=== PATIENT | female | born 2000 ===

== ENCOUNTER 2022-04-03 12:31 | Emergency (ER) | payer OTHER, SELFPAY ==
--- OUTSIDE RECORDS SUMMARY | 2022-04-03 13:53 | XMS_ITS | Continuity of Care Document ---
:2000 Author Organization [facility] Address [address] [place] [address]- Care Team Providers Name Role Phone Not on Staff, PCP Primary Care Physician Unavailable [facility]counter [facility] Date(s): 11/28/19 - 01/09/[address] [address]- [facility] Attending Physician: Not on Staff, Attending MD Allergies, Adverse Reactions, Alerts Substance Reaction Severity Status NKA Active Immunizations Given and Recorded Vaccine Date Status Refusal Reason Human Papillomavirus Vaccine 03/16/15 Given Human Papillomavirus Vaccine 01/01/14 Given Human Papillomavirus Vaccine1 09/27/12 Given Hepatitis A Pediatric Vaccine 03/16/15 Given Hepatitis A Pediatric Vaccine 01/01/14 Given influenza virus vaccine, inactivated 03/16/15 Given Varicella Virus Vaccine 01/01/14 Given Varicella Virus Vaccine 06/28/01 Given Meningococcal Polysaccharide Vaccine2 09/27/12 Given tetanus/diphtheria/pertussis, acel(Tdap)3 09/27/12 Given Poliovirus Vaccine, Inactivated 07/28/04 Given Poliovirus Vaccine, Inactivated 09/25/01 Given Poliovirus Vaccine, Inactivated 00 Given Poliovirus Vaccine, Inactivated 00 Given diphtheria/tetanus/pertussis, acel(DTaP) 07/28/04 Given diphtheria/tetanus/pertussis, acel(DTaP) 09/25/01 Given diphtheria/tetanus/pertussis, acel(DTaP) 01/01/01 Given diphtheria/tetanus/pertussis, acel(DTaP) 00 Given diphtheria/tetanus/pertussis, acel(DTaP) 00 Given Measles/Mumps/Rubella Virus Vaccine 12/02/03 Given Measles/Mumps/Rubella Virus Vaccine 06/28/01 Given Haemophilus B conjugate (HbOC) vaccine 06/28/01 Given Haemophilus B conjugate (HbOC) vaccine 01/01/01 Given Haemophilus B conjugate (HbOC) vaccine 00 Given Haemophilus B conjugate (HbOC) vaccine 00 Given pneumococcal 13-valent vaccine 01/01/01 Given hepatitis B pediatric vaccine 01/01/01 Given hepatitis B pediatric vaccine 00 Given pneumococcal 7-valent vaccine 00 Given pneumococcal 7-valent vaccine 00 Given hepatitis B adult vaccine 00 Given 1Admin Note: VIS given-07/12/20112Admin Note: vis Given-03/03/20113Admin Note: VIS given-06/13/2011 Medications Mifeprex 200 mg oral tablet See Instructions, 1 tab po given in clinic, # 1 tablet, 0 Refills, Soft Stop, 10/21/19 11:37:00 EDT Start Date: 10/21/19 Status: OrderedmiSOPROStol 200 mcg oral tablet 4 tablet = 800 mcg, By Mouth, Once, Buccal- place all four tablets in cheek and allow to dissolve, #4 tablet, 0 Refills, Soft Stop, 10/21/19 11:45:00 EDT, Tablet, [facility]/pharmacy #[id number], 157, cm, 10/20/2010:17:00 EDT, Height, 79.4, kg, 10/06/19 13:53:00... Start Date: 10/21/19 Status: OrderedZofran 4 mg oral tablet 1 tablet = 4 mg, By Mouth, Every 8 hours, # 12 tablet, 0 Refills, Maintenance, 10/21/19 11:42:00 EDT, Tablet, [facility]/pharmacy #[id number], 157, cm, 10/21/19 11:17:00 EDT, Height, 79.4, kg, 10/06/19 13:53:00 EDT, Dry Weight Start Date: 10/21/19 Status: Ordered Problem List Condition Effective Dates Status Health Status Informant Overweight peds (BMI 85-94.9 Active percentile)(Confirmed) Migraine(Confirmed) Active Social History Social History Type Response Smoking Status Never (less than 100 in life time) entered on: 10/06/19 Sex Female
--- OUTSIDE RECORDS SUMMARY | 2022-04-03 13:53 | XMS_ITS | Continuity of Care Document ---
:2000 Author Organization [facility] Address [address] [place] [address]- Care Team Providers Name Role Phone Tip CARVER, Shelby Primary Care Physician Encounter [facility] Date(s): 11/26/20 - 12/31/[address] [address]- Attending Physician: Not on Staff, Attending MD Allergies, Adverse Reactions, Alerts Substance Reaction Severity Status NKA Active Immunizations Given and Recorded Vaccine Date Status Refusal Reason tetanus/diphtheria/pertussis, acel(Tdap) 07/26/20 Given tetanus/diphtheria/pertussis, acel(Tdap)1 09/27/12 Given influenza virus vaccine, inactivated 03/16/15 Given Hepatitis A Pediatric Vaccine 03/16/15 Given Hepatitis A Pediatric Vaccine 01/01/14 Given Human Papillomavirus Vaccine 03/16/15 Given Human Papillomavirus Vaccine 01/01/14 Given Human Papillomavirus Vaccine2 09/27/12 Given Varicella Virus Vaccine 01/01/14 Given Varicella Virus Vaccine 06/28/01 Given Meningococcal Polysaccharide Vaccine3 09/27/12 Given Poliovirus Vaccine, Inactivated 07/28/04 Given [...] adult vaccine 00 Given 1Admin Note: VIS given-06/13/20112Admin Note: VIS given-07/12/20113Admin Note: vis Given-03/03/2011 Medications acetaminophen 325 mg oral tablet 650 mg, By Mouth, Every 4 hours, PRN, (1-3), may give 325mg per patient preference and re-dose with 325mg within 4 hours, if needed. Patient should only receive a total of 650mg of Acetaminophen every 4 hours., # 50 tablet, Refills 0, Tot. Refills 0... Start Date: 10/16/20 Status: Ordereddocusate sodium 100 mg oral capsule 1 capsule = 100 mg, By Mouth, 2 times a day, PRN Constipation, # 100 capsule, 0 Refills, Maintenance, 10/16/20 6:20:00 EDT, Capsule, [id number], Partial fill upon patient request if the prescription is for a schedule II opioid drug., 157, cm,... Start Date: 10/16/20 Status: Ordereddocusate sodium 100 mg oral tablet 1 tablet = 100 mg, By Mouth, 2 times a day, PRN for constipation, # 60 tablet, 0 Refills, Maintenance, 08/10/20 16:16:00 EDT, Tablet, [facility], Partial fill upon patient request if the prescription is for a schedule II opioid drug., 157, cm,... Start Date: 08/10/20 Status: Orderedferrous sulfate 325 mg oral enteric coated tablet 325 mg, 1, tablet, By Mouth, Daily, # 90 tablet, Refills 0, Tot. Refills 0, Maintenance, 08/10/20 16:16:00 EDT, Route to Pharmacy Electronically, [facility]/pharmacy #1972, Partial fill upon patient request if the prescription is for a schedule II opioid danya... Start Date: 08/10/20 Status: Orderedibuprofen 800 mg oral tablet 800 mg, 1, tablet, By Mouth, Every 8 hours, PRN, (4-6), may give 400mg per patient preference and re-dose with 400mg within 8 hours if needed. Patient should only receive a total of 800mg of Ibuprofen every 8 hours., # 50 tablet, Refills 0, Tot. Ref... Start Date: 10/16/20 Status: OrderedMiraLax oral powder for reconstitution = 17 Gm, By Mouth, Daily, dissolve in water before taking, # 255 Gm, 0 Refills, Maintenance, 09/17/20 15:41:00 EDT, REC Powder, [facility], Partial fill upon patient request if the prescriptionis for a schedule II opioid drug., 17 Gm By Mouth... Start Date: 09/17/20 Status: OrderedPrenatal Multivitamins with Folic Acid 1 mg oral tablet 1 tablet, By Mouth, Daily, # 90 tablet, 3 Refills, Maintenance, 10/16/20 6:20:00 EDT, Tablet, [facility], 1 tablet By Mouth Daily, 157, cm, 10/15/20 18:05:00 EDT, Height, 89.4, kg, 10/14/20 5:49:00 EDT, Dry Weight Start Date: 10/16/20 Status: Orderedsenna - oral tablet 2 tablet, By Mouth, Daily at bedtime, PRN for constipation, # 40 tablet, 0 Refills, Maintenance, 10/01/20 11:45:00 EDT, Tablet, [facility], Partial fill upon patient request if the prescriptionis for a schedule II opioid drug., 157, cm, 10/01... Start Date: 10/01/20 Status: OrderedTums 500 mg oral tablet, chewable 500 mg, 1, tablet, Chew, 2 times a day, PRN, # 60 tablet, Refills 3, Tot. Refills 3, Maintenance, asneeded for dyspepsia, 08/27/20 9:05:00 EDT, Route to Pharmacy Electronically, [facility], Partial fill upon patient request if the prescriptio... 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
--- OUTSIDE RECORDS SUMMARY | 2022-04-03 13:53 | XMS_ITS | Continuity of Care Document ---
:2000 Author Organization [facility] Address [address] [place] [address]- Care Team Providers Name Role Phone Not on Staff, PCP Primary Care Physician Unavailable [facility]counter [facility] Date[facility]s): 05/19/21 - 06/25/[address] [address] Attending Physician: Not on Staff, Attending MD Allergies, Adverse Reactions, Alerts No Known Allergies Immunizations Given and Recorded Vaccine Date Status [...] 08/10/20 16:16:00 EDT, Route to Pharmacy Electronically, [facility]/pharmacy #[id number], Partial fill upon patient request [...] (Confirmed)2 05/18/20 Active 1Problem added by Discern [id number] added by Discern Expert @MISC:9 Social History Social History Type Response Smoking Status Never (less than 100 in life time) entered on: 10/06/19 Sex
--- OUTSIDE RECORDS SUMMARY | 2022-04-03 13:53 | XMS_ITS | Continuity of Care Document ---
:2000 Author Organization [facility] Address [address] [place] [address]- Care Team Providers Name Role Phone Tip CARVER, Shelby Primary Care Physician Encounter [facility] Date(s): 08/27/20 - 10/24/[address] [address]- Attending Physician: Not on Staff, Attending MD [...] 08/10/20 16:16:00 EDT, Route to Pharmacy Electronically, [facility]/pharmacy #[id number], Partial fill upon patient request if [...] (Confirmed)2 05/18/20 Active 1Problem added by Discern [id number] added by Discern Expert @[facility] [place]:9 Social History Social History Type Response Smoking Status Never (less than 100 in life time) entered on: 10/06/19 Sex Female
--- OUTSIDE RECORDS SUMMARY | 2022-04-03 13:53 | XMS_ITS | Continuity of Care Document ---
:2000 Author Organization [facility] Address [address] [place] [address]- Care Team Providers Name Role Phone Not on Staff, PCP Primary Care Physician Unavailable Encounter [facility] Date(s): 05/26/21 - 07/14/[address] [address]- Attending Physician: Not on Staff, Attending MD [...] 08/10/20 16:16:00 EDT, Route to [facility], [id number], [...] (Confirmed)2 05/18/20 Active 1Problem added by Discern [id number] added by Discern Expert @[facility]:9 Social History Social History Type Response Smoking Status Never (less than 100 in life time) entered on: 10/06/19 Sex
--- OUTSIDE RECORDS SUMMARY | 2022-04-03 13:53 | XMS_ITS | Continuity of Care Document ---
:2000 Author Organization [facility] Address [address] [place] [address]- Care Team Providers Name Role Phone Shelby Whelan MD Primary Care Physician Encounter [facility] [place] [place] Date(s): 10/13/20 - 10/20/[address] [address] Attending Physician: Aurora Walker MD Allergies, Adverse Reactions, Alerts Substance Reaction [...] (Confirmed)2 05/18/20 Active 1Problem added by Discern [id number] added by Discern Expert @[facility]IS:9 Vital Signs Most recent to oldest [Reference Range]: 1 Oxygen Saturation [94-100 %] 98 % (10/13/20 7:36 PM) Pulse Rate [55-90 bpm] 87 bpm (10/13/20 7:36 PM) Blood Pressure [90-138/55-84 mm Hg] 133/86 mm Hg (10/13/20 7:36 PM) Respiratory Rate [16-30 br/min] 18 br/min (10/13/20 7:36 PM) Temperature [96.8-100.4 DegF] 97.6 DegF (10/13/20 7:29 PM) Mode of Delivery (Oxygen) Room air (10/13/20 7:36 PM) Blood pressure sites Arm, left (10/13/20 7:36 PM) Temperature Route Oral (10/13/20 7:29 PM) Social History Social History Type Response Smoking Status Never (less than 100 in life time) entered on: 10/06/19 Sex Female
--- OUTSIDE RECORDS SUMMARY | 2022-04-03 13:53 | XMS_ITS | Continuity of Care Document ---
:2000 Author Organization [facility] Address [address] [place] [address]- Care Team Providers Name Role Phone Tip CARVER, Shelby Primary Care Physician [facility]counter [facility] Date(s): 09/17/20 - 10/17/[address] [address] Allergies, Adverse Reactions, Alerts Substance Reaction Severity [...] 08/10/20 16:16:00 EDT, Route to Pharmacy Electronically, [facility]/pharmacy #[id number], Partial fill upon patient request [...] Refills, Maintenance, 09/17/20 15:41:00 EDT, REC Powder, [facility]/pharmacy #1972, Partial fill upon patient request if the prescriptionis for a schedule II opioid drug., 17 Gm By Mouth... Start Date: 09/17/20 Status: OrderedPrenatal Multivitamins with Folic Acid 1 mg oral tablet 1 tablet, By Mouth, Daily, # 90 tablet, 3 Refills, Maintenance, 10/16/20 6:20:00 EDT, Tablet, [facility]/pharmacy #1972, 1 tablet By Mouth Daily, 157, [...] (Confirmed)2 05/18/20 Active 1Problem added by Discern [id number] added by Discern Expert @[facility]:9 Social History Social History Type Response Smoking Status Never (less than 100 in life time) entered on: 10/06/19 Sex Female
--- OUTSIDE RECORDS SUMMARY | 2022-04-03 13:53 | XMS_ITS | Continuity of Care Document ---
:2000 Author Organization [facility] Address [address] [place] [address]- Care Team Providers Name Role Phone Shelby Whelan MD Primary Care Physician Encounter [facility] Date(s): 05/15/20 - 05/15/[address] [address] Discharge Disposition: A-D/C Home Attending Physician: Kareem Lazcano MD Admitting Physician: Kareem Lazcano MD Referring Physician: Kareem Lazcano MD Allergies, Adverse Reactions, Alerts Substance Reaction Severity Status NKA Active Immunizations Given and Recorded Vaccine Date Status Refusal Reason influenza virus vaccine, inactivated 03/16/15 Given Hepatitis A Pediatric Vaccine 03/16/15 Given Hepatitis A Pediatric Vaccine 01/01/14 Given Human Papillomavirus Vaccine 03/16/15 Given Human Papillomavirus Vaccine 01/01/14 Given Human Papillomavirus Vaccine1 09/27/12 Given Varicella Virus Vaccine 01/01/14 Given [...] Note: vis Given-03/03/20113Admin Note: VIS given-06/13/2011 Medications doxylamine 25 mg oral tablet 0.5 tablet = 12.5 mg, By Mouth, 3 times a day, PRN Nausea & Vomiting, Take 1/2 a tab three timesdaily with one tab of Vit B6 - if this medication causes daytime drowiness may take one whole tab atbedtime, # 45 tablet, 1 Refills, Acute 02/23/21 16:09... Start Date: 02/23/20 Stop Date: 02/23/21 Status: OrderedMetroGel 1% topical gel 1 application, Topically, Daily, # 45 Gm, 0 Refills, Maintenance, 05/15/20 2:50:00 EST, Gel, [facility]/pharmacy #[id number], Partial fill upon patient request if the prescription is for a schedule II opioid drug.,1 application Topically Daily,x7 days, 157, cm, 1... Start Date: 05/15/20 Stop Date: 05/22/20 Status: OrderedMifeprex 200 mg oral tablet See Instructions, 1 tab po given in clinic, # 1 tablet, 0 Refills, Soft Stop, 10/21/19 11:37:00 EDT Start Date: 10/21/19 Status: OrderedmiSOPROStol 200 mcg oral tablet 4 tablet = 800 mcg, By Mouth, Once, Buccal- place all four tablets in cheek and allow to dissolve, #4 tablet, 0 Refills, Soft Stop, 10/21/19 11:45:00 EDT, Tablet, [id number], 157, cm, 10/20/2010:17:00 EDT, Height, 79.4, kg, 10/06/19 13:53:00... Start Date: 10/21/19 Status: OrderedPrenatal Multivitamins with Folic Acid 1 mg oral tablet 1 tablet, By Mouth, Daily, # 90 tablet, 3 Refills, Maintenance, 02/23/20 16:06:00 EDT, Tablet, [facility] #[id number], 1 tablet By Mouth Daily, 157, cm, 10/21/19 11:17:00 EDT, Height, 79.4, kg, 10/06/19 13:53:00 EDT, Dry Weight Start Date: 02/23/20 Status: Orderedpyridoxine 25 mg oral tablet 1 tablet = 25 mg, By Mouth, 3 times a day, PRN Nausea & Vomiting, Take one tab with 1/2 a tab ofdoxylamine three times a day, # 90 tablet, 0 Refills, Acute 02/23/21 16:09:00 EDT, 02/23/20 16:07:00EDT, [facility] #[id number], 157, cm, 10/21/19 1... Start Date: 02/23/20 Stop Date: 02/23/21 Status: OrderedZofran 4 mg oral tablet 1 tablet = 4 mg, By Mouth, Every 8 hours, # 12 tablet, 0 Refills, Maintenance, 10/21/19 11:42:00 EDT, Tablet, [facility]/pharmacy #[id number], 157, cm, 10/21/19 11:17:00 EDT, Height, 79.4, kg, 10/06/19 13:53:00 EDT, Dry Weight Start Date: 10/21/19 Status: Ordered Problem List Condition Effective Dates Status Health Status Informant Overweight peds (BMI 85-94.9 Active percentile)(Confirmed) Migraine(Confirmed) Active Vital Signs Most recent to oldest [Reference Range]: 1 Weight 71.6 kg (05/15/20 1:32 AM) Oxygen Saturation [94-100 %] 99 % (05/15/20 1:30 AM) Pulse Rate [55-90 bpm] 106 bpm *H* (05/15/20 1:30 AM) Blood Pressure [90-138/55-84 mm Hg] 126/73 mm Hg (05/15/20 1:30 AM) Respiratory Rate [16-30 br/min] 16 br/min (05/15/20 1:30 AM) Temperature [96.8-100.4 DegF] 98.6 DegF (05/15/20 1:30 AM) Mode of Delivery (Oxygen) Room air (05/15/20 1:30 AM) Blood pressure sites Arm, right (05/15/20 1:30 AM) Temperature Route Oral (05/15/20 1:30 AM) Dry Weight 71.6 kg (05/15/20 1:32 AM) Weight Obtained Via Standing scale (05/15/20 1:32 AM) Social History Social History Type Response Smoking Status Never (less than 100 in life time) entered on: 10/06/19 Sex Female
--- OUTSIDE RECORDS SUMMARY | 2022-04-03 13:53 | XMS_ITS | Continuity of Care Document ---
:2000 Author Organization [facility] Address [address] [place] [address]- Care Team Providers Name Role Phone Shelby Whelan MD Primary Care Physician Encounter [facility] [place] Date(s): 05/20/20 - 06/19/[address] [address] Attending Physician: Antoinette Hess CNM Admitting Physician: Antoinette Hess CNM Referring Physician: Antoinette Hess CNM Allergies, Adverse Reactions, Alerts Substance Reaction Severity [...] Note: vis Given-03/03/20113Admin Note: VIS given-06/13/2011 Medications Diflucan 150 mg oral tablet 1 tablet = 150 mg, By Mouth, Once, # 1 tablet, 0 Refills, Soft Stop, 05/24/20 13:53:00 EST, Tablet, [facility]/pharmacy #[id number], Partial fill upon patient request if the prescription is for a schedule II opioiddrug., 157, cm, 05/06/20 11:21:00 EST, Height, 71... Start Date: 05/24/20 Status: Ordereddoxylamine 25 mg oral tablet 0.5 tablet = 12.5 mg, By Mouth, 3 times a day, PRN Nausea & Vomiting, Take 1/2 a tab three timesdaily with one tab of Vit B6 - if this medication causes daytime drowiness may take one whole tab atbedtime, # 45 tablet, 1 Refills, Acute 02/23/21 16:09... Start Date: 02/23/20 Stop Date: 02/23/21 Status: OrderedFlagyl 500 mg oral tablet 1 tablet = 500 mg, By Mouth, Every 12 hours, # 14 tablet, 0 Refills, Maintenance, 05/18/20 4:18:00 EST, Tablet, [facility]/pharmacy #[id number], Partial fill upon patient request if the prescription is for a schedule II opioid drug., 157, cm, 05/06/20 11:21:00 EST... Start Date: 05/18/20 Status: Orderedlidocaine 5% topical ointment 1 application, Topically, 3 times a day, # 50 Gm, 0 Refills, Maintenance, 05/18/20 4:22:00 EST, Ointment, [facility]/pharmacy #[id number], Partial fill upon patient request if the prescription is for a schedule II opioid drug., 1 application Topically 3 times a da... Start Date: 05/18/20 Status: OrderedMetroGel 1% topical gel 1 application, Topically, Daily, # 45 Gm, 0 Refills, Maintenance, 05/15/20 2:50:00 EST, Gel, [facility]/pharmacy #[id number], Partial fill upon patient request if the prescription is for a schedule II opioid drug.,1 application Topically Daily,x7 days, 157, cm, 1... Start Date: 05/15/20 Stop Date: 05/22/20 Status: OrderedPrenatal Multivitamins with Folic Acid 1 mg oral tablet 1 tablet, By Mouth, Daily, # 90 tablet, 3 Refills, Maintenance, 02/23/20 16:06:00 EDT, Tablet, [facility] #[id number], 1 tablet By Mouth Daily, 157, cm, [...] Refills, Acute 02/23/21 16:09:00 EDT, 02/23/20 16:07:00EDT, [facility] #[id number], 157, cm, 10/21/19 1... Start Date: 02/23/20 Stop Date: 02/23/21 Status: Orderedvalacyclovir 1 gm oral tablet 1 tablet = 1 Gm, By Mouth, 2 times a day, # 20 tablet, 0 Refills, Maintenance, 05/18/20 4:17:00 EST,Tablet, [facility]/pharmacy #[id number], Partial fill upon patient request if the prescription is for a schedule II opioid drug., 157, cm, 05/06/20 11:21:00 EST, H... 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
--- OUTSIDE RECORDS SUMMARY | 2022-04-03 13:53 | XMS_ITS | Continuity of Care Document ---
:2000 Author Organization [facility] Address [address] [place] [address]- Care Team Providers Name Role Phone Shelby Whelan MD Primary Care Physician Encounter [facility] [place] Date(s): 02/06/20 - 03/24/[address] [address]- [facility] Attending Physician: Not on Staff, Attending MD [...] Start Date: 02/23/20 Stop Date: 02/23/21 Status: OrderedMifeprex 200 mg oral tablet See Instructions, 1 tab po given in clinic, # 1 tablet, 0 Refills, Soft Stop, 10/21/19 11:37:00 EDT Start Date: 10/21/19 Status: OrderedmiSOPROStol 200 mcg oral tablet 4 tablet = 800 mcg, By Mouth, Once, Buccal- place all four tablets in cheek and allow to dissolve, #4 tablet, 0 Refills, Soft Stop, 10/21/19 11:45:00 EDT, Tablet, [facility]/pharmacy #[id number], 157, cm, 10/20/2010:17:00 EDT, Height, 79.4, kg, 10/06/19 13:53:00... Start Date: 10/21/19 Status: OrderedPrenatal Multivitamins with Folic Acid 1 mg oral tablet 1 tablet, By Mouth, Daily, # 90 tablet, 3 Refills, Maintenance, 02/23/20 16:06:00 EDT, Tablet, [facility] #[id number], 1 tablet By Mouth Daily, 157, cm, [...] Refills, Acute 02/23/21 16:09:00 EDT, 02/23/20 16:07:00EDT, [id number], 157, cm, 10/21/19 1... Start Date: 02/23/20 Stop Date: 02/23/21 Status: OrderedZofran 4 mg oral tablet 1 tablet = 4 mg, By Mouth, Every 8 hours, # 12 tablet, 0 Refills, Maintenance, 10/21/19 11:42:00 EDT, Tablet, [facility]/pharmacy #[id number], 157, cm, 10/21/19 11:17:00 EDT, Height, 79.4, kg, 10/06/19 13:53:00 EDT, Dry Weight Start Date: 10/21/19 Status: Ordered Problem List Condition Effective Dates Status Health Status Informant Overweight peds (BMI 85-94.9 Active percentile)(Confirmed) Migraine(Confirmed) Active Social History Social History Type Response Smoking Status Never (less than 100 in life time) entered on: 10/06/19 Sex Female
--- OUTSIDE RECORDS SUMMARY | 2022-04-03 13:53 | XMS_ITS | Continuity of Care Document ---
:2000 Author Organization [facility] Address [address] [place] [address]- Care Team Providers Name Role Phone Tip CARVER, Shelby Primary Care Physician Encounter [facility] Date(s): 01/03/21 - 02/02/[address] [address]- Allergies, Adverse Reactions, Alerts Substance Reaction Severity [...] (Confirmed)2 05/18/20 Active 1Problem added by Discern [id number] added by Discern Expert @MIS:9 Social History Social History Type Response Smoking Status Never (less than 100 in life time) entered on: 10/06/19 Sex
--- OUTSIDE RECORDS SUMMARY | 2022-04-03 13:53 | XMS_ITS | Continuity of Care Document ---
:2000 Author Organization [facility] Address [address] [place] [id number]- Care Team Providers Name Role Phone Shelby Whelan MD Primary Care Physician [place] [facility] [place]13[place] - 10/13/[address] [id number] Discharge Disposition: A-D/C Home Attending Physician: Kareem [...] Note: VIS given-07/12/20113Admin Note: vis Given-03/03/2011 Medications docusate sodium 100 mg oral tablet 1 tablet [...] 16:16:00 EDT, Route to Pharmacy Electronically, [facility]/pharmacy #[id number], Partial fill upon patient request if the prescription is for a schedule II opioid danya... Start Date: 08/10/20 Status: OrderedMiraLax oral powder for reconstitution = [...] 3 Refills, Maintenance, 02/23/20 16:06:00 EDT, Tablet, [facility] #[id number], 1 tablet By Mouth Daily, 157, cm, 10/21/19 11:17:00 EDT, Height, 79.4, kg, 10/06/19 13:53:00 EDT, Dry Weight Start Date: 02/23/20 Status: Orderedsenna - oral tablet 2 tablet, [...] if the prescriptio... Start Date: 08/27/20 Status: Orderedvalacyclovir 1 gm oral tablet 1 tablet = 1 Gm, By Mouth, Daily, # 30 tablet, 3 Refills, Maintenance, 07/26/20 15:14:00 EST, Tablet, [facility] #[id number], Partial fill upon patient request if the prescription is for a schedule II opioid drug., 157, cm, 07/26/20 14:42:00 EST, Height,... 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 , antepartum(Confirmed) Migraine(Confirmed) Active Anxiety and depression(Confirmed) Active Teenage (Confirmed)3 05/18/20 Active 1Problem added by Discern [id number] added by Discern [id number] added by Discern Expert @MISC:9 Vital Signs Most recent to oldest [Reference Range]: 1 2 Height 158 cm (10/13/20 9:53 AM) Weight 89.4 kg (10/13/20 9:41 AM) Pulse Rate [55-90 bpm] 90 bpm (10/13/20 9:53 AM) Blood Pressure [90-138/55-84 mm Hg] 127/78 mm Hg (10/13/20 9:53 AM) Respiratory Rate [16-30 br/min] 18 br/min (10/13/20 9:53 AM) Temperature [96.8-100.4 DegF] 98.3 DegF (10/13/20 9:41 AM) Blood pressure sites Arm, right (10/13/20 9:53 AM) Temperature Route Oral Oral (10/13/20 9:53 AM) (10/13/20 9:41 AM) Dry Weight 89.4 kg (10/13/20 9:41 AM) Weight Obtained Via Standing scale (10/13/20 9:41 AM) Dry Weight Obtained Via Standing scale (10/13/20 9:41 AM) Social History Social History Type Response Smoking Status Never (less than 100 in life time) entered on: 10/06/19 Sex Female
--- OUTSIDE RECORDS SUMMARY | 2022-04-03 13:53 | XMS_ITS | Continuity of Care Document ---
:2000 Author Organization [facility] Address [address] [place] [id number]- Care Team Providers Name Role Phone Not on Staff, PCP Primary Care Physician Unavailable Encounter [facility] Date(s): 10/06/19 - 11/28/[address] [address]- [facility] Attending Physician: Not on Staff, Attending MD Referring Physician: Jeannette Taylor MD Allergies, Adverse Reactions, Alerts Substance Reaction [...] Refills, Soft Stop, 10/21/19 11:45:00 EDT, Tablet, [facility]/pharmacy #[id number], 157, cm, 10/20/2010:17:00 EDT, Height, 79.4, kg, 10/06/19 13:53:00... Start Date: 10/21/19 Status: OrderedZofran 4 mg oral tablet 1 tablet = 4 mg, By Mouth, Every 8 hours, # 12 tablet, 0 Refills, Maintenance, 10/21/19 11:42:00 EDT, Tablet, [facility]/pharmacy #[id number], 157, cm, 10/21/19 11:17:00 EDT, [...]
--- OUTSIDE RECORDS SUMMARY | 2022-04-03 13:53 | XMS_ITS | Continuity of Care Document ---
:2000 Author Organization [facility] Address [address] [place] [id number]- Care Team Providers Name Role Phone Shelby Whelan MD Primary Care Physician Encounter [facility] [place] Date(s): 05/06/20 - 07/03/[address] [address] Attending Physician: Not on Staff, Attending MD [...] Refills, Soft Stop, 05/24/20 13:53:00 EST, Tablet, [facility]/pharmacy #[id number], Partial fill upon patient [...] 0 Refills, Maintenance, 05/18/20 4:18:00 EST, Tablet, [facility]/pharmacy #[id number], Partial fill upon patient request if the prescription is for a schedule II opioid drug., 157, cm, 05/06/20 11:21:00 EST... Start Date: 05/18/20 Status: Orderedlidocaine 5% topical ointment 1 application, Topically, 3 times a day, # 50 Gm, 0 Refills, Maintenance, 05/18/20 4:22:00 EST, Ointment, [facility]/pharmacy #[id number], Partial fill upon patient request if the prescription is for a schedule II opioid drug., 1 application Topically 3 times a da... Start Date: 05/18/20 Status: OrderedMetroGel 1% topical gel 1 application, Topically, Daily, # 45 Gm, 0 Refills, Maintenance, 05/15/20 2:50:00 EST, Gel, [facility]/pharmacy #[id number], Partial fill upon patient request if the prescription is for a schedule II opioid drug.,1 application Topically Daily,x7 days, 157, cm, 1... Start Date: 05/15/20 Stop Date: 05/22/20 Status: OrderedPrenatal Multivitamins with Folic Acid 1 mg oral tablet 1 tablet, By Mouth, Daily, # 90 tablet, 3 Refills, Maintenance, 02/23/20 16:06:00 EDT, Tablet, [facility] #[id number], 1 tablet By Mouth Daily, 157, cm, [...] Refills, Acute 02/23/21 16:09:00 EDT, 02/23/20 16:07:00EDT, [facility] #[id number], 157, cm, 10/21/19 1... Start Date: 02/23/20 Stop Date: 02/23/21 Status: Orderedvalacyclovir 1 gm oral tablet 1 tablet = 1 Gm, By Mouth, 2 times a day, # 20 tablet, 0 Refills, Maintenance, 05/18/20 4:17:00 EST,Tablet, [facility]/pharmacy #[id number], Partial fill upon patient request if [...]
--- OUTSIDE RECORDS SUMMARY | 2022-04-03 13:53 | XMS_ITS | Continuity of Care Document ---
:2000 Author Organization [facility] Address [address] [place] [id number]- Care Team Providers Name Role Phone Shelby Whelan MD Primary Care Physician [place] [facility] [place](s): 08/24/20 - 09/23/[address] [address] Allergies, Adverse Reactions, Alerts Substance Reaction Severity [...] 0 Refills, Maintenance, 08/10/20 16:16:00 EDT, Tablet, [facility]/pharmacy #[id number], Partial fill upon patient request if [...] 3 Refills, Maintenance, 02/23/20 16:06:00 EDT, Tablet, [facility] #[id number], 1 tablet By Mouth Daily, 157, cm, 10/21/19 11:17:00 EDT, Height, 79.4, kg, 10/06/19 13:53:00 EDT, Dry Weight Start Date: 02/23/20 Status: OrderedTums 500 mg oral tablet, chewable [...] (Confirmed)3 05/18/20 Active 1Problem added by Discern [id number] added by Discern [id number] added by Discern Expert @[facility]:9 Social History Social History Type Response Smoking Status Never (less than 100 in life time) entered on: 10/06/19 Sex Female
--- OUTSIDE RECORDS SUMMARY | 2022-04-03 13:53 | XMS_ITS | Continuity of Care Document ---
:2000 Author Organization [facility] Address [address] [place] [id number]- Care Team Providers Name Role Phone Shelby Whelan MD Primary Care Physician [place] [facility] [place](s[place] 05/15/20 - 05/15/[address] [address]- Discharge Disposition: Transferred to an intermediate care faci Attending Physician: Not on Staff, Attending MD Admitting Physician: Not on Staff, Admitting MD Referring Physician: Not on Staff, Referring MD Allergies, Adverse Reactions, Alerts Substance Reaction [...] 0 Refills, Maintenance, 05/15/20 2:50:00 EST, Gel, [id number], Partial fill upon patient request if [...] 3 Refills, Maintenance, 02/23/20 16:06:00 EDT, Tablet, [facility] #[id number], 1 tablet By Mouth Daily, 157, cm, [...] Refills, Acute 02/23/21 16:09:00 EDT, 02/23/20 16:07:00EDT, [id number], 157, cm, 10/21/19 1... Start Date: 02/23/20 Stop Date: 02/23/21 Status: OrderedZofran 4 mg oral tablet 1 tablet = 4 mg, By Mouth, Every 8 hours, # 12 tablet, 0 Refills, Maintenance, 10/21/19 11:42:00 EDT, Tablet, [facility]/pharmacy #[id number], 157, cm, 10/21/19 11:17:00 EDT, Height, 79.4, kg, 10/06/19 13:53:00 EDT, Dry Weight Start Date: 10/21/19 Status: Ordered Problem List Condition Effective Dates Status Health Status Informant Overweight peds (BMI 85-94.9 Active percentile)(Confirmed) Migraine(Confirmed) Active Vital Signs Most recent to oldest [Reference Range]: 1 2 Oxygen Saturation [94-100 %] 100 % 100 % (05/15/20 12:43 AM) (05/15/20 12:35 AM) Pulse Rate [55-90 bpm] 100 bpm 124 bpm *H* *H* (05/15/20 12:43 AM) (05/15/20 12:35 AM) Blood Pressure [90-138/55-84 mm Hg] 104/57 mm Hg (05/15/20 12:43 AM) Respiratory Rate [16-30 br/min] 20 br/min 20 br/mi n (05/15/20 12:43 AM) (05/15/20 12:35 AM) Temperature [96.8-100.4 DegF] 97.7 DegF (05/15/20 12:43 AM) Mode of Delivery (Oxygen) Room air Room air (05/15/20 12:43 AM) (05/15/20 12:35 AM) Temperature Route Oral (05/15/20 12:43 AM) Social History Social History Type Response Smoking Status Never (less than 100 in life time) entered on: 10/06/19 Sex Female
== END 2022-04-03 14:54 | disposition left against medical advice (07) ==
PROVIDERS: Emergency Provider Emergency Medicine
DX: R10.10 Upper abdominal pain, unspecified (principal)

== ENCOUNTER 2023-06-03 10:56 | Emergency (ER) | payer OTHER, SELFPAY ==
--- NOTE | ~2023-06-03 | US_ITS ---
EXAMINATION: US OBSTETRICAL ULTRASOUND CLINICAL INFORMATION: Beta-HCG positive. Sharp lower abdominal pain COMPARISON: None available. LMP: Unknown. TECHNIQUE: Ultrasound of the maternal pelvis is performed using transabdominal and transvaginal transducers. Transvaginal imaging is performed due to inadequate visualization transabdominally. M-mode Doppler is also performed. FINDINGS: There is a single intrauterine gestational sac with visible yolk sac, embryo/fetus, and cardiac activity. There is no significant subchorionic hemorrhage or hematoma. HR: 116 beats per minute. CRL (crown rump length): 0.59 cm (6 weeks, 3 days +/- 4 days). JOHN (estimated date of delivery): 01/24/2024 +/- 4 days. MATERNAL ADNEXA: The right maternal ovary measures 3.3 x 1.7 x 1.7 cm. There is a small periovarian exophytic cystic lesion with internal echoes measuring 2.0 x 1.3 x 1.7 cm The left maternal ovary measures 4.1 x 3.4 x 3.4 cm. No maternal pelvic ascites. US/US OB <= 14 weeks fetus IMPRESSION: 1. Single intrauterine gestation with ultrasound gestational age of 6 weeks 3 days +/- 4 days. 2. Estimated date of delivery is 01/24/2024 +/- 4 days. 3. No maternal adnexal mass or pelvic ascites.
--- NOTE | 2023-06-03 11:24 | ED_ITS ---
HPI - General Chief complaint: Abdominal Pain Stated complaint: -lower abd pain Time Seen by Provider: 06/03/23 21:29 Source: patient Mode of arrival: ambulatory Limitations: no limitations History of Present Illness HPI Narrative: Patient A1 been having lower abdominal discomfort diagnosed with 1 week when she went to clinic for cough nausea vomiting COVID test was negative. Patient has been lifting heavy weights at work no vaginal discharge noticed discomfort in suprapubic area no urinary symptoms does have nausea and vomiting no fever or chills no urinary symptoms Related Data Previous Rx's Medication Instructions Recorded ondansetron 4 mg disintegrating 4 mg PO Q6-8H PRN nausea and 06/03/23 tablet vomiting #20 tabs Allergies Allergy/AdvReac Type Severity Reaction Status Date / Time No Known Allergies Allergy Verified 06/03/23 11:25 Review of Systems 2 Review of Systems: Yes all other systems are reviewed and are negative [facility] Social History Social History Advance Directives: No Advance Directives Information Provided: No Physical Exam 2 Vital Signs: Vital Signs: Last Vital Signs Temp 97.7 F 06/03/23 20:13 Pulse 75 06/03/23 21:45 Resp 16 06/03/23 20:13 BP 114/70 06/03/23 21:45 Pulse Ox 99 06/03/23 21:45 O2 Del Method Room Air 06/03/23 21:45 BMI result Body Mass Index 27.8 Appearance: Alert. Oriented X3. No acute distress. ENT: Pharynx normal. Oral Mucosa moist Neck: Normal inspection. Neck supple. CVS: Normal heart rate and rhythm. Pulses normal. Respiratory: No respiratory distress. Equal air entry bilateral, no wheezing/rales/rhonchi Abdomen: Soft and nontender. Bowel sounds are present, no mass palpable, no CVA tenderness Skin: Skin warm and dry. Normal skin color. Normal skin turgor. Extremities: No lower extremity edema. No calf tenderness Neuro: Oriented X 3. Course Course Course Narrative: This is an RME: Additional HPI, ROS, PE not included below will be deferred to primary provider. This is a [id number], (1 miscarriage) presenting to the emergency department with a complaint of lower abdominal pain x 5 days. She states that last Sunday she went to an urgent care as she was experiencing dizziness, slight fever, and nausea. At that time she tested negative for COVID, but tested positive for . She states that her last menstrual period was around Thanksgiving time, she is uncertain about the specific date. She states that over the last 5 days she has had lower abdominal cramping with intermittent sharp pains in her suprapubic region. Denies any vaginal bleeding or discharge. Plan: Labs, UA, ultrasound Medical Decision Making Medical Decision Making [facility] Narrative: Patient with IUP no significant tenderness noticed noticed to have 2+ bacteria in the urine patient denied any symptoms for also has squamous cells patient has ketones in the urine. Patient vomiting to 3 times a day advised anterior fluids follow-up with OBGYN give a prescription of Zofran Differential Diagnosis Differential Diagnoses: The differential diagnosis associated with the presentation includes IUP/ectopic cyst/UTI Lab Data [facility] Lab Attestation statement: I reviewed the patient's lab results. 06/03/23 11:32 06/03/23 11:32 Labs: Lab Results 06/03/23 06/03/23 06/03/23 Range/Units 11:32 11:35 21:58 WBC 7.6 (4.8-10.8) X10*3/uL RBC 4.74 (4.20-5.50) X10*6/uL Hgb 14.4 (12.0-16.0) g/dl Hct 40.9 (37.0-47.0) % MCV 86.3 (80.0-98.0) fL MCH 30.4 (27.0-33.0) pg MCHC 35.2 H (31.0-35.0) g/dl RDW 11.9 (11.0-16.0) % Plt Count 284 (160-400) X10*3/uL MPV 9.0 L (9.4-12.3) fL Immature Gran % (Auto) 0.3 (0.0-0.4) % Neut % (Auto) 71.3 (45-73) % Lymph % (Auto) 20.0 (20-40) % Ponce % (Auto) 7.2 (2-11) % Eos % (Auto) 0.8 (0-4) % Baso % (Auto) 0.4 (0-2) % Lymph # (Auto) 1.5 (1.2-4.9) X10*3/uL Ponce # (Auto) 0.5 (0.1-1.2) X10*3/uL Eos # (Auto) 0.1 (0.0-0.4) X10*3/uL Baso # (Auto) 0.0 (0.0-0.2) X10*3/uL Abs Immat Gran (auto) 0.02 (0.00-0.03) X10*3/uL Absolute Neuts (auto) 5.4 (2.0-8.3) x10*3/uL Absolute Nucleated RBC 0.000 (0.0-0.012) X10*3/uL Nucleated RBC % (auto) 0.0 (0.0-0.2) /100WBC Sodium 137 (135-145) mmol/L Potassium 3.8 (3.3-5.1) mmol/L Chloride 104 (96-108) mmol/L Carbon Dioxide 23 (22-29) mmol/L Anion Gap 14 (12-20) BUN 10 (9-16) mg/dL Creatinine 0.63 (0.5-1.4) mg/dL Estim Creat Clear Calc 127.4 Estimated GFR > 60 Random Glucose 89 (60-115) mg/dL Calcium 9.9 (8.4-10.2) mg/dL Magnesium 1.8 (1.6-2.6) mg/dL Total Bilirubin 0.8 (0.0-1.0) mg/dL Direct Bilirubin 0.3 (0.0-0.5) mg/dL AST 12 (5-31) U/L ALT 11 (0-31) U/L Alkaline Phosphatase 72 (39-117) U/L Total Protein 7.6 (6.5-8.0) g/dL Albumin 4.4 (3.5-5.0) g/dL Beta HCG, Quant 36146 mIU/mL Urine Color Dark Yellow Urine Appearance Cloudy Urine pH 6.0 (5.0-9.0) Ur Specific [place] >= 1.030 H (1.005-1.025) Urine Protein Trace (Neg-Trace) mg/dL Urine Glucose (UA) Negative (Negative) mg/dL Urine Ketones >=160 (Negative) mg/dL Urine Blood Negative (Negative) Urine Nitrite Negative (Negative) Ur Leukocyte Esterase Trace H (Negative) Urine RBC 0-2 (0-2) /HPF Urine WBC 6-10 H (0-5) /HPF Ur Squamous Epith Cells 6-10 (0-2) /HPF Urine Bacteria 2+ (None Seen) Hyaline Casts 0-2 (0-2) /LPF Blood Type A Positive Independent Interpretation I performed an independent interpretation of an: Ultrasound Radiology Impression Discussion of test interpretation with radiology: I have reviewed the radiologist's reading. Discharge Plan Discharge Clinical Impression: Early stage of Patient Disposition: Home, Self-Care Instructions: at 7 to 10 Weeks (ED) Additional Instructions: You have normal 6 weeks 3 days Avoid lifting heavy weights .>20 lbs Follow-up with your OB gy Prescriptions: New ondansetron 4 mg tablet,disintegrating 4 mg PO Q6-8H PRN (Reason: nausea and vomiting) Qty: 20 0RF Stand Alone Forms: Work/School Release Interventions: ED Discharge Assessment Last Done: 06/03/23 22:08 Discharge Date/Time: 06/03/23 22:08
[2023-06-03 11:25] VITALS: BP 105/71; PULSE 84; RESP 18; TEMP 37.5; O2SAT 99; BMI 27.8
[2023-06-03 11:43] LABS: Basophils Percent Auto 0.4 % (0-2); Eosinophils Absolute Auto 0.1 X10*3/uL (0.0-0.4); Eosinophils Percent Auto 0.8 % (0-4); Hematocrit 40.9 % (37.0-47.0); Hemoglobin 14.4 g/dl (12.0-16.0); Imm Gran Abs Auto 0.02 X10*3/uL (0.00-0.03); Imm Gran Pct Auto 0.3 % (0.0-0.4); Lymphocytes Absolute Auto 1.5 X10*3/uL (1.2-4.9); MANUAL DIFF FLAG NO; Mean Corpuscular HGB Conc 35.2 g/dl (31.0-35.0); Mean Corpuscular Hemoglobin 30.4 pg (27.0-33.0); Mean Corpuscular Volume 86.3 fL (80.0-98.0); Monocytes Absolute Auto 0.5 X10*3/uL (0.1-1.2); Monocytes Percent Auto 7.2 % (2-11); Neutrophils Absolute Auto 5.4 x10*3/uL (2.0-8.3); Neutrophils Percent Auto 71.3 % (45-73); Platelet Count 284 X10*3/uL (160-400); Red Blood Count 4.74 X10*6/uL (4.20-5.50); Red Cell Distribution Width 11.9 % (11.0-16.0); White Blood Count 7.6 X10*3/uL (4.8-10.8)
[2023-06-03 12:07] LABS: Alanine Aminotransferase 11 U/L (0-31); Albumin Level 4.4 g/dL (3.5-5.0); Alkaline Phosphatase 72 U/L (39-117); Anion Gap 14 (12-20); Aspartate Amino Transferase 12 U/L (5-31); Bilirubin Direct 0.3 mg/dL (0.0-0.5); Bilirubin Total 0.8 mg/dL (0.0-1.0); Blood Urea Nitrogen 10 mg/dL (9-16); Calcium 9.9 mg/dL (8.4-10.2); Carbon Dioxide 23 mmol/L (22-29); Chloride 104 mmol/L (96-108); Creatinine Clr Calc Pharmacy 127.4; Estimated Glomerular Filt Rate > 60; Glucose Random 89 mg/dL (60-115); Magnesium 1.8 mg/dL (1.6-2.6); Potassium 3.8 mmol/L (3.3-5.1); Sodium 137 mmol/L (135-145); Total Protein 7.6 g/dL (6.5-8.0)
[2023-06-03 20:13] VITALS: BP 120/62; PULSE 96; RESP 16; TEMP 36.5; O2SAT 96
[2023-06-03 21:45] VITALS: BP 114/70; PULSE 75; O2SAT 99
[2023-06-03 22:12] LABS: Appearance Urine Cloudy; Color Urine Dark Yellow; Glucose Urine UA Negative (Negative); Leukocyte Esterase Urine Trace (Negative); Nitrite Urine Negative (Negative); Specific Gravity - Urine >= 1.030 (1.005-1.025); UMIC TRIGGER UACC YES; Urine Blood Negative (Negative); Urine Ketones >=160 mg/dL (Negative); Urine Protein Trace mg/dL (Neg-Trace)
[2023-06-03 22:14] LABS: Bacteria Urine 2+ (None Seen); Hyaline Casts Urine 0-2 /LPF (0-2); RBC Urine 0-2 /HPF (0-2); UACC Culture Trigger YES
== END 2023-06-03 22:08 | disposition home or self-care (01) ==
PROVIDERS: Physician Assistant Medical; Emergency Provider Internal Medicine
DX: O21.0 Mild hyperemesis gravidarum (principal); Z3A.01 Less than 8 weeks gestation of pregnancy; Z79.899 Other long term (current) drug therapy
CPT/HCPCS: 36415; 76801; 80048; 80076; 81001; 83735; 84702; 85025; 86900; 86901; 87086; 99283; 99284